=== PATIENT | female | born 1965 | race Caucasian/White ===

== ENCOUNTER 2017-05-28 09:40 | Emergency (ER) | payer BC ==
[~2017-05-28] VITALS: Ht 172.7 cm; Wt 81.0 kg
[~2017-05-28 09:40] MED LIST: ATENOLOL25 MG PO; ATENOLOL50 MG PO; BACTRIM,SEPT1 TABLET PO; CELEXA20 MG PO; DOXYCYCLINE HY100 M3 PO; NASONEX17 GM BOTH NARES; NEXIUM40 MG PO; NORCO 5/3251 TABLET PO; NUVIGIL150 MG PO; NUVIGIL250 MG PO; PREMARIN0.3 MG PO; PREMPRO 0.621 TABLE1 PO; SYNTHROID112 MCG PO; SYNTHROID125 MCG PO; TOPAMAX50 MG PO; VENTOLIN HFA18 GM IH
[2017-05-28 09:43] VITALS: BP 172/100
[2017-05-28 10:07] LABS: HEMATOCRIT 41.2 % (36.0-46.0); HEMOGLOBIN 13.4 G/DL (11.9-15.5); MCH 28.2 PG (29.0-34.0); MCHC 32.5 G/DL (30.0-36.0); MCV 86.7 FL (83-99); PLATELET COUNT 297 K/uL (156-360); RBC DIS.WIDTH-CV 12.4 % (11.8-14.6); RBC DIS.WIDTH-SD 39.3 % (39-53); RED BLOOD COUNT 4.75 M/uL (3.80-5.20); WHITE BLOOD COUNT 6.9 K/uL (4.1-10.2)
[2017-05-28 10:18] LABS: CHLORIDE 107 mEq/L (99-109); POTASSIUM 4.3 mEq/L (3.7-5.4); SODIUM 139 mEq/L (136-147)
[2017-05-28 10:20] LABS: GLUCOSE 103 mg/dL (70-99)
[2017-05-28 10:23] LABS: CREATININE 0.7 mg/dL (0.6-1.3); GFR ESTIMATE (CALCULATED) > 59 mL/min/
[2017-05-28 10:24] LABS: UREA NITROGEN (BUN) 20 mg/dL (9-23)
== END 2017-05-28 12:30 | disposition left against medical advice (07) ==
LOC: EME 09:40
PROVIDERS: Emergency Medicine
DX: I10 Essential (primary) hypertension (principal); H53.8 Other visual disturbances; M79.606 Pain in leg, unspecified; R51 Headache; Z53.21 Procedure and treatment not carried out due to patient leaving prior to being seen by health care provider
CPT/HCPCS: 80048; 85027; 93005